=== PATIENT | male | born 1960 | race Caucasian/White ===

== ENCOUNTER 2019-03-06 13:15 | Day surgery (SDC) | payer OTHER ==
[~2019-03-06] VITALS: Ht 180.3 cm; Wt 79.1 kg
[~2019-03-06 13:15] MED LIST: PROPECIA1 MG PO
[2019-03-06 13:27] VITALS: BP 155/92; PULSE 85; TEMP 98
[2019-03-06] MEDS ORDERED: ARIMIDEX1 MG PO (13:33)
[2019-03-06] MEDS ORDERED: XYOSTED50 MG/0.5 SQ (13:39)
[2019-03-06 15:00] VITALS: BP 132/82; PULSE 78; TEMP 98.2
--- NOTE | 2019-03-06 15:00 | NUR ---
Patient returned back to [facility]. Alert and oriented. Ambulated to chair without difficulty. Vital signs stable. Patient is sleepy at this time, denies any pain or nausea. at bedside. Call samuels within reach, will continue to monitor.
[2019-03-06 15:15] VITALS: BP 115/88; PULSE 96
--- NOTE | 2019-03-06 15:15 | NUR ---
Patient states he is ready for water and crackers. Vital signs WNL. Will continue to monitor.
[2019-03-06 15:30] VITALS: BP 127/78; PULSE 94
--- NOTE | 2019-03-06 15:30 | NUR ---
Patient is tolerating food and drink without difficulty. States he would like more water. Vital signs stable. Will continue to monitor.
--- NOTE | 2019-03-06 15:40 | NUR ---
Patient education reviewed with patient and . Verbalized understanding. IV removed per protocol. Patient to get dressed at this time.
--- NOTE | 2019-03-06 15:50 | NUR ---
Patient brought down to lobby via wheel chair. To be driven home by .
== END 2019-03-06 15:50 | disposition home or self-care (01) ==
LOC: SDCO 13:15
DX: Z12.11 Encounter for screening for malignant neoplasm of colon (principal); K57.30 Diverticulosis of large intestine without perforation or abscess without bleeding
CPT/HCPCS: J2250; J2405; J3010; J7030

== ENCOUNTER 2022-02-09 07:41 | Day surgery (SDC) | payer OTHER ==
[2022-02-09] VITALS (10 sets, daily range): BP systolic 123–157; BP diastolic 76–91; PULSE 50–66; TEMP 97.9
[~2022-02-09] VITALS: Ht 180.3 cm; Wt 84.1 kg
[~2022-02-09 07:41] MED LIST changes: +ARIMIDEX1 MG PO; +COZAAR 50MG50 MG/TAB PO; +PHARMASSURE ZIN50 MG PO; +VITAMIND3 5000 PO; +XYOSTED50 MG/0.5 SQ
[2022-02-09 08:23] LABS: HEMATOCRIT 51.1 % (42.0-52.0); HEMOGLOBIN 16.7 g/dl (13.5-18.0); MEAN CELL VOLUME 85 fl (80.0-100.0); MEAN CORPUSCULAR HEMOGLOBIN 28 pg (27-31); MEAN CORPUSCULAR HGB CONC 33 g/dl (33.0-37.0); MEAN PLATELET VOLUME 10.3 fl (7.4-10.4); PLATELET COUNT 204 K/mm3 (130-400); RED BLOOD COUNT 6.05 M/mm3 (4.20-5.60); REDCELL DISTRIBUTION WIDTH-CV 18.4 % (11.5-14.5)
[2022-02-09] MEDS ORDERED: ZEBETA 5MG5 MG PO (08:30)
[2022-02-09] MEDS ORDERED: NITROSTAT0.4 MG/TAB SL (08:31)
[2022-02-09] MEDS ORDERED: ASPIRIN E.C. 8181 MG PO (08:31)
[2022-02-09] MEDS ORDERED: CYANOCOBAL1000 MCG/M IM (08:33)
[2022-02-09] MEDS ORDERED: OMEGA-3 1000 MG1 CAP PO (08:34)
[2022-02-09] MEDS ORDERED: CRESTOR20 MG PO (08:35)
[2022-02-09 08:36] LABS: INR 1.1 (0.8-3.0); PROTHROMBIN TIME 12.6 SECONDS (9.7-12.8)
[2022-02-09] MEDS ORDERED: THE MEDICINE S200 M2 PO (08:36)
[2022-02-09] MEDS ORDERED: CIALIS5 MG PO (08:36)
[2022-02-09 08:38] LABS: CREATININE, serum 1.22 mg/dL (0.72-1.25); POTASSIUM 4.5 mmol/L (3.5-4.5)
[2022-02-09 08:39] LABS: PARTIAL THROMBOPLASTIN TIME 32.3 SECONDS (26.0-37.0)
--- NOTE | 2022-02-09 11:08 | NUR ---
See merge for all medication, assessment, intervention, vital sign times.
--- NOTE | 2022-02-09 12:05 | NUR ---
PT is back from collaborating supervising physician, report received from Yoan FORREST. Pt is awake and alert, resp reg and unlabored. TR band in place, cms intact distal. pt and updated on poc. ordering lunch for patient.
--- NOTE | 2022-02-09 15:54 | NUR ---
Pt did well during his recovery. Pt rested comfortably without pain, was able to eat a meal. TR band has been removed with no problem, site dressed wtih bandaid, folded 2x2 and coban. cms remains intact distal. I have reviewed dc/rx and fu instructions with pt and his . Pt and verbalize understanding. Pt is up and ambulatory, gait is steady. Pt escorted to exit via wheelchair.
== END 2022-02-09 18:41 | disposition home or self-care (01) ==
LOC: COL.CAR 07:41
PROVIDERS: Internal Medicine Cardiovascular Disease
DX: I25.10 Atherosclerotic heart disease of native coronary artery without angina pectoris (principal); I10 Essential (primary) hypertension; R94.39 Abnormal result of other cardiovascular function study; E78.2 Mixed hyperlipidemia; Z79.899 Other long term (current) drug therapy
CPT/HCPCS: C1769; J1644; J2250; J3010; Q9967